=== PATIENT | male | born 1990 | race African-American/Black ===

== ENCOUNTER 2022-01-06 23:24 | Emergency (ER) | payer MEDICAID ==
[~2022-01-06] VITALS: Ht 175.3 cm; Wt 99.3 kg
[2022-01-06 23:38] VITALS: BP 156/102
--- NOTE | 2022-01-07 01:39 | NUR ---
Patient returned back from radiology dept.
--- NOTE | 2022-01-07 02:53 | NUR ---
Dr. Soriano examining patient.
[2022-01-07] MEDS ORDERED: NAPR-54 PO (03:07)
[2022-01-07] MEDS ORDERED: ACET-8386 PO (03:07)
[2022-01-07] MEDS: KETOROLAC 30 MG/ML VIAL IM ONE (03:16)
[2022-01-07 03:37] VITALS: BP 144/92
--- NOTE | 2022-01-07 03:37 | NUR ---
Patient discharged with v/s stable. Written and verbal after care instructions given and explained for Acute Knee pain. Patient alert, oriented and verbalized understanding of instructions. Ambulatory with steady gait. All questions addressed prior to discharge. ID band removed. Patient advised to follow up with PMD. Rx of [place] and Naproxen given. Patient educated on indication of medication including possible reaction and side effects. Opportunity to ask questions provided and answered.
== END 2022-01-07 03:37 | disposition home or self-care (01) ==
LOC: MED 23:24
DX: M25.561 Pain in right knee (principal); F41.9 Anxiety disorder, unspecified; Z79.899 Other long term (current) drug therapy
CPT/HCPCS: 29505; 73562; 96372; 99283; J1885